=== PATIENT | male | born 1980 | race Caucasian/White ===

== ENCOUNTER 2024-10-13 12:02 | Emergency (ER) | payer SELFPAY ==
[2024-10-13 12:14] VITALS: BP 134/83; PULSE 68; RESP 17; TEMP 36.7; O2SAT 100; BMI 25.2
--- NOTE | 2024-10-13 12:24 | XRR_ITS ---
PROCEDURE INFORMATION: Exam: XR Left Knee Exam date and time: 10/13/2024 1:35 PM Age: 44 years old Clinical indication: Injury or trauma; Fall; Blunt trauma; Knee; Left; Additional info: Fall/wound TECHNIQUE: Imaging protocol: Radiologic exam of the left knee. Views: 3 views. COMPARISON: No relevant prior studies available. FINDINGS: Bones/joints: Trace knee joint effusion. Soft tissues: Mild prepatellar soft swelling. XR/XR knee LT 3V* [id number] IMPRESSION: No acute fracture or dislocation.
--- NOTE | 2024-10-13 14:30 | ED_ITS ---
HPI - Extremity Problem General: Chief complaint: Extremity Injury, Lower Stated complaint: lt leg inj Time Seen by Provider: 10/13/24 13:01 History of Present Illness: 44-year-old male patient presents to the emergency department complaining of laceration to the left knee. Patient states he was running chasing his son and fell on gravel. Patient states this occurred last night around midnight. Patient states his tetanus is up-to-date. Patient denies any other trauma or injury. Patient presents with bleeding controlled Related Data Previous Rx's ?Medication ?Instructions ?Recorded cephalexin 500 mg capsule 500 mg PO Q8H 7 days #21 cap s 10/13/24 Allergies Allergy/AdvReac Type Severity Reaction Status Date / Time No Known Allergies Allergy Verified 10/13/24 12:24 Review of Systems General: Reports: 10 or more systems reviewed and unremarkable except in HPI and below Physical Exam Const: COMMON NORMALS: no acute distress, average body habitus, patient oriented x3, no limitations and healthy appearing HENMT: COMMON NORMALS: normocephalic and atraumatic HEAD & SCALP: normocephalic and atraumatic Neck/C-Spine: COMMON NORMALS: full ROM and no lymphadenopathy Resp: COMMON NORMALS: normal respiratory effort Cardio: COMMON NORMALS: regular rate RATE: regular rate Extremity: LEFT LOWER EXTREMITY: Yes lower leg OTHER: 3 cm linear laceration across the knee Neuro: COMMON NORMALS: patient oriented x3, CN's II-XII intact bilaterally, moves all extremities and no focal motor deficits Skin: NARRATIVE SKIN EXAM: Please see extremity exam no other abnormal findings Procedures Laceration Laceration 1: Site: lower extremity (Knee) Side (If applicable): left Size (cm): 3 Description: linear Local Anesthetic: lidocaine 1% Amount of anesthesia used (mL): 5 Pre-repair: wound explored and irrigated extensively Skin layer closed with: nylon Size (cm): 5-0 Number of sutures: 7 Course Vital Signs: Vital signs: Vital Signs Temperature 98.0 F 10/13/24 12:14 Pulse Rate 68 10/13/24 12:14 Respiratory Rate 17 10/13/24 12:14 Blood Pressure 134/83 10/13/24 12:14 Pulse Oximetry 100 10/13/24 12:14 Oxygen Delivery Me thod Room Air 10/13/24 12:14 MDM - Extremity (Nontraumatic) Medical Decision Making Patient is well-appearing nontoxic and in no acute distress.44-year-old male patient presents to the emergency department complaining of laceration to the left knee. Patient states he was running chasing his son and fell on gravel. Patient states this occurred last night around midnight. Patient states his tetanus is up-to-date. Patient denies any other trauma or injury. Patient presents with bleeding controlled x-ray reveals no acute fractures or dislocation. Please see procedure note for laceration repair. Patient is ne urovascularly intact distally. Patient ambulates without difficulty. Patient was placed in a knee immobilizer to ensure sutures remain intact during healing. I did review review return precautions home care to include wound care instructions as well as follow-up. Do not feel patient needs any other emergent testing at this time. Patient is medically cleared and appropriate for discharge patient's tetanus is up-to-date. Lab Data Radiology Impressions Knee X-Ray 10/13/24 12:24 IMPRESSION: No acute fracture or dislocation. All radiology interpretation(s) finalized by discharge Discharge Plan Discharge Patient Disposition: Home Clinical Impression: Knee laceration Qualifiers: Encounter type: initial encounter Laterality: left Qualified Code(s): S81.012A - Laceration without foreign body, left knee, initial encounter Condition: Stable Prescriptions: New cephalexin 500 mg capsule 500 mg PO Q8H 7 Days Qty: 21 0RF Discharge Orders: Discharge ED (Routine); Ordered 10/13/24 Ordered By: January Elliott Discharge Diet: Advance as tolerated Discharge Activity: Limit activity as instructed Patient Instructions: Opioid Safety, Pain Management, Patient Portal & Unique Instructions Activity Restrictions/Additional Instructions: Wear knee immobilizer when up and walking Return to ER in 8-10 days for suture removal or sooner with any concerns of infection increased pain, fever or any other concerns Follow up with PCP Take meds as directed Stand Alone Forms: Work/School Release Print Language: Yoruba Coding Level of Care Code ED Professional Services Specialist for Eliseo Copeland
--- NOTE | 2024-10-13 15:17 | PC.NURSE ---
dressed wound with non stick telfa and JAKE wrap.
== END 2024-10-13 15:18 | disposition home or self-care (01) ==
PROVIDERS: Emergency Provider Registered Nurse
DX: S81.012A Laceration without foreign body, left knee, initial encounter (principal); W19.XXXA Unspecified fall, initial encounter
CPT/HCPCS: 12002; 73562; 99283; J9999

== ENCOUNTER 2024-10-21 16:32 | Emergency (ER) | payer SELFPAY ==
[2024-10-21 16:33] VITALS: BP 149/76; PULSE 61; TEMP 36.7; O2SAT 100; BMI 22.3
--- NOTE | 2024-10-21 17:11 | ED_ITS ---
HPI - Recheck/Abnormal Lab/Rx General: Chief Complaint: Recheck/Abnormal Lab/Rx Stated Complaint: stitches on L knee , dog jumped and ripped them Time Seen by Provider: 10/21/24 16:55 History of Present Illness: Patient is a 44-year-old gentleman that had a laceration to his left knee 1 week ago when playing with his son. Tonight for, his dog and cat were playing, and his dog scratched his left knee, and pulled one of the stitches. He was here to have them checked. He has not had any fevers, increasing redness, increasing pain. No drainage from this area. No concerns regarding this area of his knee other than the dog pulling at the suture. Related Data Previous Rx's ?Medication ?Instructions ?Recorded amoxicillin 875 mg-potassium 1 tab PO Q12H 10 days #20 tabs 10/21/24 clavulanate 125 mg tablet Allergies Allergy/AdvReac Type Severity Reaction Status Date / Time No Known Allergies Allergy Verified 10/21/24 16:39 Review of Systems General: Reports: 10 or more systems reviewed and unremarkable except in HPI and below GI: Denies: abdominal pain, nausea or vomiting Musc: Reports: extremity pain and joint pain Physical Exam Const: COMMON NORMALS: no acute distress, average body habitus, patient oriented x3, no limitations and healthy appearing HENMT: COMMON NORMALS: normocephalic and atraumatic HEAD & SCALP: normocephalic and atraumatic Neck/C-Spine: COMMON NORMALS: full ROM and no lymphadenopathy Resp: COMMON NORMALS: normal respiratory effort Cardio: COMMON NORMALS: regular rate RATE: regular rate Extremity: LEFT LOWER EXTREMITY: Yes lower leg OTHER: 5 cm laceration vertically left knee wit h intact sutures except for 2. Neuro: COMMON NORMALS: patient oriented x3, CN's II-XII intact bilaterally, moves all extremities and no focal motor deficits Skin: NARRATIVE SKIN EXAM: Please see extremity exam no other abnormal findings Course Vital Signs: Vital signs: Vital Signs Temperature 98.1 F 10/21/24 16:33 Pulse Rate 61 10/21/24 16:33 Blood Pressure 149/76 10/21/24 16:33 Pulse Oximetry 100 10/21/24 16:33 Oxygen Delivery Me thod Room Air 10/21/24 16:33 MDM - Recheck/Abnormal Lab/Rx Medical Decision Making Sutures will be removed. He has been 8 days since they are placed and it is time to be removed. This will be placed with Vaseline gauze, and covered, wrapped. Patient was instructed to ice, elevate, return if there is increasing redness, or fever. No radiology studies performed this visit Discharge Plan Discharge Patient Disposition: Home Clinical Impression: Acute pain of left knee, Encounter for wound re-check, Visit for suture removal Condition: Stable Prescriptions: New amoxicillin-pot clavulanate 875-125 mg tablet 1 tab PO Q12H 10 Days Qty: 20 0RF Discharge Orders: Discharge ED (Routine); Ordered 10/21/24 Ordered By: Vicenta Turcios Discharge Diet: Usual diet Discharge Activity: Resume usual activity and Use walker/crutches as instructed Patient Instructions: Animal Bite (ED), Patient Portal & Unique Instructions Activity Restrictions/Additional Instructions: Information was given for animal bite, however I realize it is more of a scratch. Knee appears as if he is healing well. I did contact case management to set up her primary for continued following Take your antibiotics as prescribed. Utilize a probiotic?you can obtain [id number], or active culture yogurt while on antibiotics so you do not get infectious diarrhea Continue current activity with supportive device such as a cane for stability Return to ED if you have reddening of this knee, fever greater than 100.4, increasing pain. Utilize Tylenol and ibuprofen for pain today. Stand Alone Forms: Work/School Release Print Language: Jamaican Coding Level of Care Code ED Fleet Administrator for Eliseo Copeland
--- NOTE | 2024-10-25 08:41 | DCPLANNER ---
messaged wpfm for er f/u
== END 2024-10-21 18:19 | disposition home or self-care (01) ==
PROVIDERS: Emergency Provider Physician Assistant
DX: M25.562 Pain in left knee (principal); Z48.02 Encounter for removal of sutures
CPT/HCPCS: 99283